=== PATIENT | male | born 1965 | race Two or more races ===

== ENCOUNTER 2017-09-20 17:28 | Emergency (ER) | payer OTHER ==
[~2017-09-20] VITALS: Ht 180.3 cm; Wt 72.6 kg
[2017-09-20] MEDS ORDERED: Thiamine HCl 100 MG in D5W 55 ML IVPB ONE (17:30)
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
[2017-09-20] MEDS ORDERED: Thiamine HCl 100mg/ml 2 ml Inj ONE (18:20)
[2017-09-20 18:59] LABS: PROTHROMBIN TIME 10.2 SEC (9.30-11.50)
[2017-09-20] MEDS ORDERED: LORazepam Inj 2mg/ml 1ml IV ONE (19:45)
[2017-09-20 20:03] LABS: ALANINE AMINOTRANSFERASE 117 U/L (12-78); ALBUMIN/GLOBULIN RATIO 1.1 (1.0-2.7); ANION GAP 25 mmol/L (5-15); ASPARTATE AMINO TRANSFERASE 89 U/L (15-37); CALCIUM 8.9 MG/DL (8.5-10.1); CARBON DIOXIDE 17 MMOL/L (21-32); CHLORIDE 101 MMOL/L (98-107); CREATININE 1.1 MG/DL (0.55-1.30); GLOMERULAR FILTRATION RATE > 60 mL/min (>60); POTASSIUM 3.6 MMOL/L (3.5-5.1); SODIUM 142 MMOL/L (136-145); TOTAL PROTEIN 7.6 G/DL (6.4-8.2)
[2017-09-20 20:07] LABS: BASOPHILS % (AUTO) 1.5 % (0.0-2.0); MEAN CORPUSCULAR HEMOGLOBIN 30.9 PG (27.0-31.0); MEAN CORPUSCULAR HGB CONC 31.8 G/DL (32.0-36.0); MEAN CORPUSCULAR VOLUME 97 FL (80-99); MEAN PLATELET VOLUME 6.6 FL (6.5-10.1); MONOCYTES % (AUTO) 10.3 % (1.0-10.0); NEUTROPHILS % (AUTO) 52.2 % (45.0-75.0); PLATELET COUNT 266 K/UL (150-450); RED BLOOD COUNT 5.19 M/UL (4.70-6.10); RED CELL DISTRIBUTION WIDTH 12.7 % (11.6-14.8); WHITE BLOOD COUNT 5.8 K/UL (4.8-10.8)
[2017-09-20 21:47] VITALS: BP 138/89
== END 2017-09-20 21:47 | disposition home or self-care (01) ==
LOC: EDBD 17:28 → EDUNIT# 17:54 → EMR 17:54
DX: F10.120 Alcohol abuse with intoxication, uncomplicated (principal); S00.11XA Contusion of right eyelid and periocular area, initial encounter; Y04.2XXA Assault by strike against or bumped into by another person, initial encounter; Y92.89 Other specified places as the place of occurrence of the external cause; I10 Essential (primary) hypertension
CPT/HCPCS: 36415; 70450; 80053; 85025; 85610; 85730; 96365; 96366; 96375; 99284; G0480; J2405; 80329

== ENCOUNTER 2017-09-21 19:24 | Emergency (ER) | payer OTHER ==
[~2017-09-21] VITALS: Ht 175.3 cm; Wt 81.6 kg
--- NOTE | 2017-09-21 19:14 | Emergency Room Report ---
History of Present Illness General Chief Complaint: Altered Level of Consciousness Source: Patient, Medical Record, EMS (LEONEL KELLER M.D.) Present Illness HPI 52YOM BIBEMS from home with suspected acute ETOH intox Patient also endorses taking "some" gabapentin EMS also brought in bottles of propranolol but patient denies taking extra doses of those Denies other drugs or coingestants Per EMR, patient here yesterday CT head normal ETOH level ~400 Ultimately was DCed [employer] placed patient on 5150 because he expressed SI with taking pills earlier to them. However patient currently denies SI, HI, AVH (LEONEL KELLER M.D.) Allergies: Coded Allergies: NO KNOWN ALLERGIES (Unverified Allergy, Unknown, 08/01/15) Patient History Past Medical History: HTN Past Surgical History: unable to obtain Pertinent Family History: unable to obtain Social History: Reports: alcohol use Immunizations: UTD Reviewed Nursing Documentation: PMH: Agreed, PSxH: Agreed (LEONEL KELLER M.D.) Nursing Documentation-PMH Past Medical History: No History, Except For Hx Hypertension: Yes (LEONEL KELLER M.D.) Review of Systems All Other Systems: negative except mentioned in HPI (LEONEL KELLER M.D.) Physical Exam Vital Signs Date Time Temp Pulse Resp B/P (MAP) Pulse Ox O2 Delivery O2 Flow Rate FiO2 09/21/17 19:00 98.2 102 20 143/98 97 Room Air Sp02 EP Interpretation: reviewed, normal General Appearance: normal inspection, well appearing, no apparent distress, alert, GCS 15, non-toxic, other - +AOB, disheveled Head: atraumatic Eyes: bilateral eye PERRL, bilateral eye other - Pupils sluggish ENT: normal ENT inspection, hearing grossly normal, normal voice Neck: normal inspection, full range of motion, supple, no bony tend Respiratory: normal inspection, lungs clear, normal breath sounds, no respiratory distress, no retraction, no wheezing Cardiovascular #1: regular rate, rhythm, no edema Gastrointestinal: normal inspection, normal bowel sounds, non tender, soft, no guarding, no hernia Genitourinary: no CVA tenderness Musculoskeletal: normal inspection, back normal, normal range of motion, Nain' s Sign negative Neurologic: normal inspection, alert, oriented x3, responsive, lithographic photographer III-XII nml as tested, speech normal Psychiatric: normal inspection, judgement/insight normal, mood/affect normal Skin: normal inspection, normal color, no rash, warm/dry Lymphatic: normal inspection (LEONEL KELLER M.D.) Medical Decision Making Diagnostic Impression: Primary Impression: Altered level of consciousness Additional Impressions: Acute alcohol intoxication Qualified Codes: F10.929 - Alcohol use, unspecified with intoxication, unspecified Suicidal ideation ER Course Doubt BB overdose given initial HR >100 Clinically intoxicated Patient placed on 5150 Continues to try to get up and walk out of ER - very unsteady on feet D/t danger to himself was sedated with haldol Signed out to Dr Saez at 10pm to followup labs for medical clearance and possible psych placement (LEONEL KELLER M.D.) ER Course Patient signed out to me. He presents with alcohol intoxication and expressed some suicidal thoughts to police. He slept through the night and restraint were removed. He does not remember say anything to police. Said is not suicidal. Because of his severe alcohol abuse at this time he appeared to be slightly tremulous. We'll give him Librium. We'll get psychiatric evaluation in the morning to remove the 5150 if he is no longer suicidal. (SANDRA SAEZ M.D.) ER Course Received signout 52-year-old male, alcohol intoxication, was expressing SI however currently not expressing any SI, currently on a 5150 hold. Patient kept trying to get up and leave, was very unsteady and his feet, behavioral restraints were placed overnight, also prior to this patient was seen to urinate on the floor on purpose, yelling at staff, pending psych eval Dr. Tomas paged Patient eval'ed by Dr Tomas no expression of SI currently +in withdrawal, was given ativan and librium overnight, will give another valium and librium in ED will give prescription of depakote to patient per Dr Tomas cleared by psych for DC home after withdrawal symptoms resolve (Kim Erazo M.D.) Rhythm Strip Diag. Results EP Interpretation: yes Rate: 100 Rhythm: NSR, no PVC's, no ectopy (LEONEL KELLER M.D.) Last Vital Signs Date Time Temp Pulse Resp B/P (MAP) Pulse Ox O2 Delivery O2 Flow Rate FiO2 09/21/17 19:00 98.2 102 20 143/98 97 Room Air Status: improved (LEONEL KELLER M.D.) Status: improved (SANDRA SAEZ M.D.) Disposition: HOME, SELF-CARE Condition: Stable Scripts Divalproex Sodium* (DEPAKOTE*) 250 Mg Tablet. 500 MG PO Q12HR, #20 TAB 0 Refills Prov: Kim Erazo M.D. 09/22/17 LEONEL KELLER M.D. Sep 21, 2017 19:14 SANDRA SAEZ M.D. Sep 22, 2017 04:30 Kim Erazo M.D. Sep 22, 2017 06:48
[2017-09-21] MEDS ORDERED: Haloperidol 5mg/ml Inj IM ONE (20:00)
[2017-09-21 21:07] LABS: BASOPHILS % (AUTO) 0.9 % (0.0-2.0); EOSINOPHILS % (AUTO) 0.2 % (0.0-3.0); LYMPHOCYTES % (AUTO) 37.1 % (20.0-45.0); MEAN CORPUSCULAR HEMOGLOBIN 31.8 PG (27.0-31.0); MEAN CORPUSCULAR VOLUME 96 FL (80-99); MEAN PLATELET VOLUME 6.8 FL (6.5-10.1); MONOCYTES % (AUTO) 9.6 % (1.0-10.0); NEUTROPHILS % (AUTO) 52.2 % (45.0-75.0); PLATELET COUNT 228 K/UL (150-450); RED BLOOD COUNT 4.77 M/UL (4.70-6.10); RED CELL DISTRIBUTION WIDTH 12.2 % (11.6-14.8); WHITE BLOOD COUNT 7.9 K/UL (4.8-10.8)
[2017-09-21] MEDS ORDERED: LORazepam Inj 2mg/ml 1ml ONE (21:29)
[2017-09-21] MEDS ORDERED: LORazepam Inj 2mg/ml 1ml IV ONE (21:30)
[2017-09-21 21:31] LABS: ACETAMINOPHEN < 2 MCG/ML (10-30); ALANINE AMINOTRANSFERASE 113 U/L (12-78); ALBUMIN/GLOBULIN RATIO 1.1 (1.0-2.7); ALCOHOL 422 mg/dL; ANION GAP 14 mmol/L (5-15); ASPARTATE AMINO TRANSFERASE 98 U/L (15-37); CALCIUM 8.4 MG/DL (8.5-10.1); CARBON DIOXIDE 28 MMOL/L (21-32); CHLORIDE 104 MMOL/L (98-107); GLOMERULAR FILTRATION RATE > 60 mL/min (>60); POTASSIUM 3.5 MMOL/L (3.5-5.1); SODIUM 146 MMOL/L (136-145); TOTAL PROTEIN 7.3 G/DL (6.4-8.2)
[2017-09-21 23:00] VITALS: BP 135/80
[2017-09-22] VITALS (15 sets, daily range): BP systolic 120–165; BP diastolic 80–110
[2017-09-22] MEDS ORDERED: chlordiazePOXIDE 25mg Cap ORAL ONE ×2 (04:30→12:45)
--- NOTE | 2017-09-22 12:09 | Consultation ---
History of Present Illness General Chief Complaint: Altered Level of Consciousness Present Illness HPI 52 yo male with hx of alcohol and benzo dependence, s/p od. the pt is under the care of Dr. Tobias. the pt receive Klonopin from [facility]. the pt stated that he recently relapsed on etoh and cannot control self. the pt is currently withdrawing and is anxious. the pt does not have a good support system. the pt denies SI/Hi. the pt was given Librium and Ativan. still withdrawing. the pt is not endorsing depressive/manic sxs. the pt wants to be discharged and go to his parents in [place]. the pt is tachy, anxious and severely shaking. the pt was placed on a 5150 hold for OD.this was not suicidal and this was not a suicide attempt. the pt was given valium and other meds in er for etoh withdrawal. Allergies: Coded Allergies: NO KNOWN ALLERGIES (Unverified Allergy, Unknown, 08/01/15) Medication History Scheduled Divalproex Sodium* (Depakote*), 500 MG PO Q12HR Patient History Limited by: medical condition History Provided By: Patient, Medical Record, PMD Healthcare decision maker Resuscitation status Advanced Directive on File Past Medical/Surgical History Past Medical/Surgical History: (1) Acute alcoholic intoxication Review of Systems Psychiatric: Reports: prior hx, anxiety, depressed feelings Physical Exam General Appearance: alert, moderate distress, agitated Neurologic: alert, oriented x 3, responsive, depressed affect Last 24 Hour Vital Signs Date Time Temp Pulse Resp B/P (MAP) Pulse Ox O2 Delivery O2 Flow Rate FiO2 09/22/17 10:45 97.9 87 19 150/95 10 Room Air 09/22/17 08:45 99 18 99 Room Air 09/22/17 08:45 97.9 99 18 155/99 99 Room Air 09/22/17 08:30 96 18 99 Room Air 09/22/17 08:15 99 18 99 Room Air 09/22/17 08:00 91 18 99 Room Air 09/22/17 07:45 98 20 99 Room Air 09/22/17 07:00 93 17 99 Room Air 09/22/17 06:45 98.2 78 18 138/99 99 Room Air 09/22/17 06:45 89 18 99 Room Air 09/22/17 05:00 98.2 78 18 144/92 99 Room Air 09/22/17 03:00 98.2 88 20 120/89 97 Room Air 09/22/17 01:02 98.2 88 20 128/80 97 Room Air 09/21/17 23:00 98.2 80 20 135/80 97 Room Air 09/21/17 19:00 98.2 102 20 143/98 97 Room Air Laboratory Tests Test 09/21/17 20:52 09/21/17 21:11 White Blood Count 7.9 K/UL (4.8-10.8) Red Blood Count 4.77 M/UL (4.70-6.10) Hemoglobin 15.2 G/DL (14.2-18.0) Hematocrit 46.0 % (42.0-52.0) Mean Corpuscular Volume 96 FL (80-99) Mean Corpuscular Hemoglobin 31.8 PG (27.0-31.0) H Mean Corpuscular Hemoglobin Concent 33.0 G/DL (32.0-36.0) Red Cell Distribution Width 12.2 % (11.6-14.8) Platelet Count 228 K/UL (150-450) Mean Platelet Volume 6.8 FL (6.5-10.1) Neutrophils (%) (Auto) 52.2 % (45.0-75.0) Lymphocytes (%) (Auto) 37.1 % (20.0-45.0) Monocytes (%) (Auto) 9.6 % (1.0-10.0) Eosinophils (%) (Auto) 0.2 % (0.0-3.0) Basophils (%) (Auto) 0.9 % (0.0-2.0) Sodium Level 146 MMOL/L (136-145) H Potassium Level 3.5 MMOL/L (3.5-5.1) Chloride Level 104 MMOL/L (98-107) Carbon Dioxide Level 28 MMOL/L (21-32) Anion Gap 14 mmol/L (5-15) Blood Urea Nitrogen 14 mg/dL (7-18) Creatinine 1.0 MG/DL (0.55-1.30) Estimat Glomerular Filtration Rate > 60 mL/min (>60) Glucose Level 117 MG/DL (74-106) H Calcium Level 8.4 MG/DL (8.5-10.1) L Total Bilirubin 0.7 MG/DL (0.2-1.0) Aspartate Amino Transf (AST/SGOT) 98 U/L (15-37) H Alanine Aminotransferase (ALT/SGPT) 113 U/L (12-78) H Alkaline Phosphatase 104 U/L (46-116) Total Protein 7.3 G/DL (6.4-8.2) Albumin 3.8 G/DL (3.4-5.0) Globulin 3.5 g/dL Albumin/Globulin Ratio 1.1 (1.0-2.7) Salicylates Level < 0.2 ug/mL (2.8-20) L Acetaminophen Level < 2 MCG/ML (10-30) L Serum Alcohol 422 mg/dL Urine Opiates Screen Negative (NEGATIVE) Urine Barbiturates Screen Negative (NEGATIVE) Phencyclidine (PCP) Screen Negative (NEGATIVE) Urine Amphetamines Screen Negative (NEGATIVE) Urine Benzodiazepines Screen Positive (NEGATIVE) H Urine Cocaine Screen Negative (NEGATIVE) Urine Marijuana (THC) Screen Negative (NEGATIVE) Height (Feet): 5 Height (Inches): 9.00 Weight (Pounds): 180 Assessment/Plan Status: progressing Assessment/Plan Alcohol dependence, recently relapsed etoh withdrawal -valium -depakote after dc -dc 5150 Francsica Tomas M.D. Sep 22, 2017 12:09
[2017-09-22] MEDS ORDERED: DEPAKOTE250 MG PO (12:45)
--- NOTE | 2017-09-25 14:47 | Cardiology Report ---
APPROVED REPORT EKG Measurement Heart [id number] Normal sinus rhythm Prolonged QT Abnormal ECG
== END 2017-09-22 16:05 | disposition home or self-care (01) ==
LOC: EDBD 19:24 → EMR 19:39
DX: F10.129 Alcohol abuse with intoxication, unspecified (principal); R45.851 Suicidal ideations; I10 Essential (primary) hypertension
CPT/HCPCS: 36415; 80053; 80307; 85025; 93005; 96372; 96374; 99285; G0480; J1630; 80329